=== PATIENT | female | born 1990 | race Caucasian/White ===

== ENCOUNTER 2022-09-02 14:20 | Inpatient (IN) | payer OTHER ==
--- OUTSIDE RECORDS SUMMARY | 2022-09-02 14:24 | XMS REPORT | Continuity of Care Document ---
:1990 Author Organization [facility] t Address [address]. [place]. [address] [place] [address] Care Team Providers Name Role Phone Manjit CASTILLO, Jonny Zamarripa Primary Care Physician [phone] GUZMAN POLK Attending Clinician Unavailable LAB90 Attending Clinician Unavailable CONSUELO WONG Attending Clinician Unavailable Tasha James Attending Clinician Unavailable Ekwo Attending Clinician Unavailable Ekwo Admitting Clinician Unavailable Payers Payer Name Policy Type Policy Number Effective Date Expiration Date Brad [facility] [id number] 2022 DEGREE BENEFIT 00:00:00 [facility] [id number] (O) Problems Condition Condition Condition Status Onset Resolution Last Treating Co mments Source Name Details Category Date Date Treatment Clinician Date Elevated Elevated Disease Active Kelse y liver liver 4-28 Seybold function function 00:00: - tests tests 00 Externa l Diagnosis Active 2017-052018-02-16 Memoria 8 8 0-12 15:29:00 l WEEKS/VOMI WEEKS/VOMI 00:00: He rmann TTING TTING 00 Active 02/16/2018 [facility] Hai Simple Simple Problem Active 2019-06-16 Mem oria obesity obesity 00:45:28 l (disorder) (disorder) He rmann Active Problem 06/16/2019 [facility] 8 weeks 8 weeks Problem 2018-09-05 Me moria gestation gestation 14:32:58 l of of Crum 09/05/2018 [facility] History of Past Illness Condition Condition Condition Status Onset Resolution Last Treating Co mments Source Name Details Category Date Date Treatment Clinician Date Vomiting Vomiting Problem 2017-052018-09-05 2018-09-05 Memoria of of 0-18 14:32:58 14:32:58 l , , 04:24: Jair dar unspecifie unspecifie 05 d d 02/22/2018 09/05/2018 [facility] Nausea Nausea Problem 2017-052018-09-05 2018-09-05 Memoria with with 0-12 14:32:58 14:32:58 l vomiting, vomiting, 05:00: Herm shannen unspecifie unspecifie 00 d d 02/16/2018 09/05/2018 [facility] Encounter Encounter Problem 2017-052018-09-05 2018-09-05 Memoria for for 0-12 14:32:58 14:32:58 l supervisio supervisio 05:00: He dar n of n of 00 normal normal , , unspecifie unspecifie d, d, unspecifie unspecifie d d trimester trimester 02/16/2018 9 [facility] Allergies, Adverse Reactions, Alerts This patient has no known allergies or adverse reactions. Social History Social Habit Start Date Stop Date Quantity Comments Source Gender identity Fior lindo - External Sexual orientation Fior Schmitt - External ASSERTION [facility] Sex Assigned At [birth year] Jose Armando Schmitt - 00:00:00 00:00:00 External Smoking Status Start Date Stop Date Source Tobacco smoking consumption unknown Fior Schmitt - External Social History [facility] Medications Ordered Filled Start Stop Current Ordering Indication Dosage Frequency Signature Comments Components Source Medication Medication Date Date Medication? Clinician (SIG) Name Name Metoclopram 2017-05 No 10 mg = 1 M emoria sameera 10 MG 0-13 tab, PO, l Oral Tablet 01:47: QID, X 7 He rmann [Reglan] 00 day, # 28 tab, 0 Refill(s) Sodium 2017-05 No 1,000 mL, Memori a Chloride 0-12 Infuse l 0.9% 22:19: Over: 1 Hai (Bolus) IV 00 hr, Route: IV, ONCE, Priority: STAT, Dosing Weight 72.727 kg, Start date: 02/16/18 17:19:00 CDT, Stop date: 02/16/18 17:19:00 CDT Reglan 2017-05 No Notes: Memoria 0-12 (Same as: l 19:18: Reglan) Crum 00 Sodium 2017-05 No 1,000 mL, Memori a Chloride 0-12 1,000 l 0.9% 19:18: ml/hr, Hai (Bolus) IV 00 Infuse Over: 1 hr, Route: IV, 1,000, Drug form: INJ, ONCE, Priority: STAT, kg, Start date: 02/16/18 14:18:00 CDT, Stop date: 02/16/18 14:18:00 CDT Immunizations Ordered Immunization Filled Immunization Date Status Commen ts Source Name Name Tdap- (Boostrix, 2018-07-06 Completed Fior brizuela Adacel) 00:00:00 - External Vital Signs Vital Name Observation Time Observation Value Comments Source Systolic blood 2022-09-02 18:03:00 105 mm[Hg] Fior Schmitt - pressure External Diastolic blood 2022-09-02 18:03:00 83 mm[Hg] Parviz Schmitt - pressure External Heart rate 2022-09-02 18:03:00 106 /min Fior brizuela - External Body temperature 2022-09-02 18:03:00 37.28 Helen Billie domínguez Seybwisam - External Respiratory rate 2022-09-02 18:03:00 14 /min Billie Schmitt - External Body height 2022-09-02 18:03:00 165.1 cm Fior brizuela - External Body weight 2022-09-02 18:03:00 77.111 kg Fior brizuela - External BMI 2022-09-02 18:03:00 28.29 kg/m2 Fior brizuela - External Oxygen saturation in 2022-09-02 18:03:00 96 /min Fior Schmitt - Arterial blood by External Pulse oximetry Systolic (mm Hg) 2019-06-13 15:50:00 Tomás rial Hai Diastolic (mm Hg) 2019-06-13 15:50:00 Mem orial Hai Heart Rate 2019-06-13 15:50:00 Memorial Hai Respitory Rate 2019-06-13 15:50:00 Memori al Hai Temperature Oral (F) 2019-06-13 15:50:00 97.8 F [facility] Height 2019-06-13 15:50:00 167.64 cm [facility] Hai Weight 2019-06-13 15:50:00 [facility] BMI Calculated 2019-06-13 15:50:00 Memori al Hai Systolic (mm Hg) 2018-02-17 01:59:00 Tomás rial Crum Diastolic (mm Hg) 2018-02-17 01:59:00 Mem orial Hai Respitory Rate 2018-02-17 01:59:00 Memori al Crum Heart Rate 2018-02-17 01:59:00 [facility] Hai Temperature Oral (F) 2018-02-17 01:59:00 98.5 F [facility]ai Heart Rate 2018-02-16 23:47:00 [facility] Hai Respitory Rate 2018-02-16 23:47:00 Memori al Hai Systolic (mm Hg) 2018-02-16 23:47:00 Tomás rial Crum Diastolic (mm Hg) 2018-02-16 23:47:00 Mem orial Hai Temperature Oral (F) 2018-02-16 23:47:00 98.7 F [facility] Hai Systolic (mm Hg) 2018-02-16 22:09:00 Tomás rial Hai Diastolic (mm Hg) 2018-02-16 22:09:00 Mem orial Hai Respitory Rate 2018-02-16 22:09:00 Memori al Crum Heart Rate 2018-02-16 22:09:00 [facility] Hai Temperature Oral (F) 2018-02-16 22:09:00 98.7 F [facility] BMI Calculated 2018-02-16 19:17:00 Memori al Hai Height 2018-02-16 19:17:00 165.1 cm [facility] Weight 2018-02-16 19:17:00 [facility] Procedures Procedure Date / Time Performing Clinician Source Performed Influenza Types A,B 2022-01-09 00:00:00 Malika . Direct EIA [facility] A Streptococcus 2022-01-09 00:00:[address] Screen (CHETAN) [facility] 2018-05-08 [facility] 2008-05-08 00:00:00 [facility] Plan of Care Planned Activity Planned Date Details Comments Source Future Scheduled 2022-01-07 HEPATITIS B [facility] 02:16:14 VACCINES (1 of 3 - 3-dose series) [code = HEPATITIS B VACCINES (1 of 3 - 3-dose series)] Future Scheduled 2022-01-07 COVID-19 VACCINE [facility] 02:16:14 (#1) [code = COVID-19 VACCINE (#1)] Future Scheduled 2022-01-07 Screening for [facility] Test 02:16:14 malignant neoplasm of cervix (procedure) [code = 527885783] Future Scheduled 2022-01-07 INFLUENZA VACCINE [facility] 02:16:14 [code = INFLUENZA VACCINE] Encounters Start End Encounter Admission Attending Care Care Encounter Source Date/Time Date/Time Type Type Clinicians Facility Department ID 2022-09-02 2022-09-02 Outpatient FIOR POLK [id number] Fior 16:45:00 16:45:00 GUZMAN cano 2022-09-02 2022-09-02 Outpatient LAB90 FIOR JOHNSON [id number] Fior 13:45:00 13:45:00 Mike cano 2022-08-30 2022-08-30 Emergency E JUDITH, MHBL MHBL [id number] MHBL 11:24:00 14:59:00 SARATHI 2022-01-09 2022-01-09 Departed [id number] [facility] [place] fb [id number] [place] 18:05:00 19:46:00 Emergency [id number] Tenzin [id number] . -[id number] Health [id number] Joaquin eph' [id number] Ctr-EMERGEN [id number] s [facility]/MS Care [facility] 2022-01-09 2022-01-09 Emergency ER James, STNINOSKAJQue STNINOSKAJQue [id number] 18:05:00 19:46:00 Tasha -[id number] Eligio Jauregui 2020-03-26 2020-03-26 Outpatient Ekwo [facility] [id number] [place] 04:35:00 04:35:00 1119 lle [facility] 2019-06-13 2019-06-14 Outpatient nullFlavo [facility] [id number] Memoria 15:45:00 05:59:59 r Primary 01 l [facility] 2018-02-16 2018-02-17 Emergency nullFlavo [facility] [id number] Memoria 19:05:00 02:03:00 r Crum 00 l [facility] 2017-06-27 2017-06-27 Ambulatory nullFlavo [facility] [id number] Memoria 21:30:00 21:30:00 Pre-Reg r Neurology 00 l of [facility] Results Test Description Test Time Test Comments Results Result Comments Source Culture, Strep Group A Rflx 2022-01-11 14:47:00 Test Item Value Reference Range Interpretation Comme nts Culture, Strep Group A Rflx (test STRPCULT A code = STRPACULT) Culture, Strep Group A Rflx (test P A No penicillin, cephalosporin, or code = STRPACULT1) vancomyci n resistance hasbeen detected in Beta-hemolyt ic strep groups A,B,C,F or G,so routine susceptibility testing for these organ isms is notnecessary. Influenza A+B Ag [id number] 19:17:00 Test Item Value Reference Range Interpretation Comments Influenza A+B Ag The rapid Flu A+B test Screen (test code = can distinguish between FLU) influenza A Influenza A+B Ag follow up confirmatory Screen (test code = testing is warranted. FLU1) Influenza A+B Ag FLUB Screen (test code = FLU1) Influenza A+B Ag N Screen (test code = FLU1) Strep Group A [id number] 19:02:00 Test Item Value Reference Range Interpretation Comments Strep Group A Screen (test code = STRPANEG1 STRP) Strep Group A Screen (test code = N STRP1) Strep Group A Screen (test code = STRPTH STRP1) [id number] 18:51:00 Test Item Value Reference Range Interpretation Comments Urinalysis (test code = UACLR) Yellow Yellow Urinalysis (test code = UACLY) Clear Clear Urinalysis (test code = SPGR) 1.034 1.002-1.036 N Urinalysis (test code = BRAULIO) 5.5 5.0-9.0 N Urinalysis (test code = UALEU) Negative Negative Urinalysis (test code = UANIT) Negative Negative Urinalysis (test code = Negative mg/dL Neg-Trace PROUADIP) Urinalysis (test code = GLUCU) Negative mg/dL Negative Urinalysis (test code = KETU) Negative mg/dL Negative Urinalysis (test code = 0.2 mg/dL Less than 2 UAUROB) Urinalysis (test code = UABIL) Negative Negative Urinalysis (test code = UABLD) Negative Negative Urine Source: Urine Clean [id number] 18:50:00 Test Item Value Reference Range Interpretation Comments Urinalysis (test Negative Negative Method of s ensitivity- code = BHCGUT) INDETERMINANT : results should be repea skip after 48-72 hrs POSIT RACHEL: results may be detected as early as 1 day after the first missed period A dilute urine specimen may no t contain representativel evels of hCG.If pregnanc y is still suspected, a fi rst morning urinespecimen O R a random blood specimen should be obtainedfrom e patient 48-72 hours lat er and re-tested. Urinalysis (test 1.034 1.002-1.036 N code = PREGUSG) HCG ur [id number] 18:39:00 Test Item Value Reference Range Interpretation Comments Urine Test (test code = Negative Negative 6-3) [facility]2022 18:39:00 Test Item Value Reference Range Interpretation Comments Urine Color (test code = 5778-6) Yellow Yellow [facility] [id number] 18:39:00 Test Item Value Reference Range Interpretation Comments Urine Clarity (test code = 19670-0) Clear Clear [facility] specific gravity measurement by [id number] 18:39:00 Test Item Value Reference Range Interpretation Comments Urine Specific Pray (test code = 1.034 1.002-1.036 5810-7) [facility] pH measurement by automated test strip 2022-01-09 18:39:00 Test Item Value Reference Range Interpretation Comments Urine pH (test code = 13047-2) 5.5 5.0-9.0 [facility] leukocyte esterase detection by automated test [id number] 18:39:00 Test Item Value Reference Range Interpretation Comments Urine Leukocyte Esterase (test code Negative Negative = 10241-2) [facility] Urine by Test strip 2022-01-09 18:39:00 Test Item Value Reference Range Interpretation Comments Urine Nitrite (test code = 5802-4) Negative Negative [facility] protein measurement by automated test strip (mass/volume)2022-01-09 18:39:00 Test Item Value Reference Range Interpretation Comments Urine Protein (test code = Negative mg/dL Neg-Trace 41087-3) [facility] glucose measurement by test strip (mass/volume)2022-01-09 18:39:00 Test Item Value Reference Range Interpretation Comments Urine Glucose (UA) (test code Negative mg/dL Negative = 5792-7) [facility] ketones measurement by automated test strip (mass/volume)2022-01-09 18:39:00 Test Item Value Reference Range Interpretation Comments Urine Ketones (test code = Negative mg/dL Negative 44582-5) [facility] urobilinogen measurement (units/volume) by test [id number] 18:39:00 Test Item Value Reference Range Interpretation Comments Urine Urobilinogen (test code = 0.2 mg/dL Less than 2 49445-3) [facility] total bilirubin detection by automated test [id number] 18:39:00 Test Item Value Reference Range Interpretation Comments Urine Bilirubin (test code = Negative Negative 63118-9) [facility] hemoglobin detection by automated test [id number] 18:39:00 Test Item Value Reference Range Interpretation Comments Urine Blood (test code = 41772-3) Negative Negative [facility] 20:31:00 Test Item Value Reference Range Interpretation Comments Hct (test code = Hct) 40.0 36.0-48.0 [facility]CzrffmpNKKEJLTLGT0555-60-78 20:31:00 Test Item Value Reference Range Interpretation Comments MCV (test code = MCV) 85.3 80.0-98.0 [facility]woodMuqsgzfHLWYUTUANO8981-46-40 20:31:00 Test Item Value Reference Range Interpretation Comments MCH (test code = MCH) 29.8 pg 27.0-31.0 [facility]woodWwwzcyvYSLAHXTWIW9090-29-11 20:31:00 Test Item Value Reference Range Interpretation Comments RBC (test code = RBC) 4.69 4.20-5.40 [facility] BrownwoodZdospatWOCMYUVCHQ1560-75-19 20:31:00 Test Item Value Reference Range Interpretation Comments Hgb (test code = Hgb) 14.0 12.0-16.0 [facility]woodCklvlpfHRQZEQVDCA8948-04-91 20:31:00 Test Item Value Reference Range Interpretation Comments WBC (test code = WBC) 11.9 3.7-10.4 [facility]woodEzzodbpYYFFRSVTCT5464-16-36 20:31:00 Test Item Value Reference Range Interpretation Comments Platelet (test code = Platelet) 259 133-450 [facility] BrownwoodCbbkiqiIIYBOLVDCO6637-97-34 20:31:00 Test Item Value Reference Range Interpretation Comments MPV (test code = MPV) 8.9 7.4-10.4 [facility] BrownwoodKgpxrblLYXLVILCBI0345-79-96 20:31:00 Test Item Value Reference Range Interpretation Comments Lymphocytes (test code = Lymphocytes) 24.3 20.0-40.0 [facility] BrownwoodJjxivoaZPYQZQAISW7440-15-28 20:31:00 Test Item Value Reference Range Interpretation Comments Basophils # (test code 0.1 See_Comment [Aut omated message] The = Basophils #) system which generated this result tra nsmitted reference range : <=0.2. The reference r omar was not used to int erpret this result as normal/abnormal . [facility] BrownwoodZxoteocPSFCAXEDBX7983-75-21 20:31:00 Test Item Value Reference Range Interpretation Comments Eosinophils # (test code 0.1 See_Comment [A utomated message] The = Eosinophils #) system [facility] h generated this result tra nsmitted reference range : <=0.5. The reference r omar was not used to int erpret this result as normal/abnormal . [facility] Br[id number] 20:31:00 Test Item Value Reference Range Interpretation Comments Monocytes # (test code 0.8 See_Comment [Aut omated message] The = Monocytes #) system which generated this result tra nsmitted reference range : <=0.8. The reference r omar was not used to int erpret this result as normal/abnormal . [facility] BrownwoodWocxichXQZERQMWJT8522-56-25 20:31:00 Test Item Value Reference Range Interpretation Comments Lymphocytes # (test code = Lymphocytes 2.9 1.0-5.5 #) [facility] BrownwoodFtvupqyFAJPIABYZU4720-70-08 20:31:00 Test Item Value Reference Range Interpretation Comments Neutrophils # (test code = Neutrophils 8.0 1.5-8.1 #) [facility] BrownwoodHawpulcCBXUBKKUMD7621-68-95 20:31:00 Test Item Value Reference Range Interpretation Comments Basophils (test code = 0.8 See_Comment [Aut omated message] The Basophils) system which ge nerated this result tra nsmitted reference range : <=1.0. The reference r omar was not used to int erpret this result as normal/abnormal . [facility] Brownwo[id number] 20:31:00 Test Item Value Reference Range Interpretation Comments Eosinophils (test code = 0.7 See_Comment [A utomated message] The Eosinophils) system which ge nerated this result tra nsmitted reference range : <=4.0. The reference r omar was not used to int erpret this result as normal/abnormal . [facility] BrownwoodHnitzaeXQRATMRQHM8851-14-19 20:31:00 Test Item Value Reference Range Interpretation Comments Monocytes (test code = Monocytes) 6.8 2.0-12.0 [facility]JswuytyZOPXVJTBFX4752-61-44 20:31:00 Test Item Value Reference Range Interpretation Comments Segs (test code = Segs) 67.4 45.0-75.0 [facility] [id number] 20:31:00 Test Item Value Reference Range Interpretation Comments UA Bacteria (test code = UA Occasional /HPF Bacteria) [facility] AND [id number] 20:31:00 Test Item Value Reference Range Interpretation Comments UA Nitrite (test code Negative (02/16/18 3:31 = UA Nitrite) PM) [facility] [id number] 20:31:00 Test Item Value Reference Range Interpretation Comments UA Urobilinogen (test code = UA <=1.0 mg/dL 0.1-1.0 Urobilinogen) [facility] [id number] 20:31:00 Test Item Value Reference Range Interpretation Comments UA RBC (test code = 3 See_Comment [Automa skip message] The UA RBC) system which ge nerated this result transmit skip reference range : <=2. The reference range was not used to interpr et this result as marina l/abnormal. [facility] [id number] 20:31:00 Test Item Value Reference Range Interpretation Comments UA Sq Epi (test code = UA Sq Epi) Few /LPF [facility] AND [id number] 20:31:00 Test Item Value Reference Range Interpretation Comments UA WBC (test code = 1 See_Comment [Automa skip message] The UA WBC) system which ge nerated this result transmit skip reference range : <=5. The reference range was not used to interpr et this result as marina l/abnormal. [facility] [id number] 20:31:00 Test Item Value Reference Range Interpretation Comments UA Mucus (test code = UA Mucus) Many /LPF [facility] [id number] 20:31:00 Test Item Value Reference Range Interpretation Comments UA Color (test code = Yellow *NA*(02/16/18 UA Color) 3:31 PM) [facility] [id number] 20:31:00 Test Item Value Reference Range Interpretation Comments UA pH (test code = UA pH) 5.0 1 5.0-8.0 [facility] AND [id number] 20:31:00 Test Item Value Reference Range Interpretation Comments UA Spec Grav (test code = UA Spec 1.028 1 Grav) [facility] AND [id number] 20:31:00 Test Item Value Reference Range Interpretation Comments UA Protein (test code = UA Protein) 30 mg/dL [facility] AND [id number] 20:31:00 Test Item Value Reference Range Interpretation Comments UA Glucose (test code = UA Negative mg/dL Glucose) [facility] AND [id number] 20:31:00 Test Item Value Reference Range Interpretation Comments UA Turbidity (test code Slight *ABN*(02/16/18 = UA Turbidity) 3:31 PM) [facility] AND [id number] 20:31:00 Test Item Value Reference Range Interpretation Comments UA Blood (test code = Negative (02/16/18 3:31 UA Blood) PM) [facility] AND [id number] 20:31:00 Test Item Value Reference Range Interpretation Comments UA Bili (test code = Negative *NA*(02/16/18 UA Bili) 3:31 PM) [facility] AND [id number] 20:31:00 Test Item Value Reference Range Interpretation Comments UA Leuk Est (test Negative (02/16/18 3:31 code = UA Leuk Est) PM) [facility] AND [id number] 20:31:00 Test Item Value Reference Range Interpretation Comments UA Ketones (test code = UA Ketones) 80 mg/dL [facility] [id number] 20:31:00 Test Item Value Reference Range Interpretation Comments Culture: Urine (test code = No Growth Culture: Urine) [facility] [id number] 20:31:00 Test Item Value Reference Range Interpretation Comments eGFR (test code = eGFR) 124 [facility] [id number] 20:31:00 Test Item Value Reference Range Interpretation Comments ALT (test code = ALT) 18 See_Comment [Auto mated message] The system which ge nerated this result transmit skip reference range : <=65. The reference range was not used to interpr et this result as marina l/abnormal. [facility]2018-10-12 20:31:00 Test Item Value Reference Range Interpretation Comments Glucose Lvl (test code = Glucose Lvl) 84 70-99 [facility]2018-10-12 20:31:00 Test Item Value Reference Range Interpretation Comments BUN (test code = BUN) 7 7-22 [facility]2018-10-12 20:31:00 Test Item Value Reference Range Interpretation Comments Creatinine Lvl (test code = Creatinine 0.64 0.50-1.40 Lvl) [facility]2018-10-12 20:31:00 Test Item Value Reference Range Interpretation Comments Sodium Lvl (test code = Sodium Lvl) 139 135-145 [facility]2018-10-12 20:31:00 Test Item Value Reference Range Interpretation Comments Chloride Lvl (test code = Chloride Lvl) 107 95-109 [facility]2018-10-12 20:31:00 Test Item Value Reference Range Interpretation Comments Potassium Lvl (test code = Potassium 4.2 3.5-5.1 Lvl) [facility]2018-10-12 20:31:00 Test Item Value Reference Range Interpretation Comments Bili Total (test code = Bili Total) 0.6 0.2-1.3 [facility]2018-10-12 20:31:00 Test Item Value Reference Range Interpretation Comments Alk Phos (test code = Alk Phos) 51 39-136 [facility]2018-10-12 20:31:00 Test Item Value Reference Range Interpretation Comments CO2 (test code = CO2) 21 24-32 [facility]2018-10-12 20:31:00 Test Item Value Reference Range Interpretation Comments Calcium Lvl (test code = Calcium Lvl) 9.2 8.5-10.5 [facility]2018-10-12 20:31:00 Test Item Value Reference Range Interpretation Comments Total Protein (test code = Total 8.0 6.4-8.4 Protein) [facility]2018-10-12 20:31:00 Test Item Value Reference Range Interpretation Comments Albumin Lvl (test code = Albumin Lvl) 4.4 3.5-5.0 [facility]2018-10-12 20:31:00 Test Item Value Reference Range Interpretation Comments AST (test code = AST) 17 See_Comment [Auto mated message] The system which ge nerated this result transmit skip reference range : <=37. The reference range was not used to interpr et this result as marina l/abnormal. [facility]2018-10-12 20:31:00 Test Item Value Reference Range Interpretation Comments B/C Ratio (test code = B/C Ratio) 11 1 6-25 [facility]2018-10-12 20:31:00 Test Item Value Reference Range Interpretation Comments Globulin (test code = Globulin) 3.6 2.7-4.2 [facility]2018-10-12 20:31:00 Test Item Value Reference Range Interpretation Comments A/G Ratio (test code = A/G Ratio) 1.2 1 0.7-1.6 [facility]2018-10-12 20:31:00 Test Item Value Reference Range Interpretation Comments AGAP (test code = AGAP) 15.2 10.0-20.0 [id number] 20:31:00 Test Item Value Reference Range Interpretation Comments hCG Tot (test code = hCG Tot) [id number] [id number] 20:31:00 Test Item Value Reference Range Interpretation Comments MCHC (test code = MCHC) 34.9 32.0-36.0 [id number] 20:31:00 Test Item Value Reference Range Interpretation Comments RDW (test code = RDW) 12.4 11.5-14.5 [facility]
[2022-09-02] MEDS ORDERED: NA CHLORIDE 0.9% 2,000 ML ONE (14:55)
[2022-09-02 15:13] LABS: Specific Gravity 1.019 (1.005-1.030); Urine Bacteria <20 /HPF (<20); Urine Bilirubin NEGATIVE (Negative); Urine Blood 1+ (Negative); Urine Clarity Turbid (Clear); Urine Color Yellow (Yellow); Urine Crystals Unidentified Few /HPF (None Seen); Urine Glucose NEGATIVE (Negative); Urine Mucus Slight /HPF (None Seen); Urine Protein 1+ (Negative); Urine RBC <5 /HPF (None Seen); Urine Urobilinogen 2+ (Normal); Urine pH 5.5 (5.0-7.0)
[2022-09-02 15:24] LABS: Absolute Lymphocytes (CBC) 3.2 K/uL (0.7-4.9); Hematocrit 33.7 % (36.0-45.0); Lymphocytes % 31.8 % (15.3-44.8); MCV 83.6 fL (80-100); MPV 9.4 fL (7.6-11.3); RBC Red Blood Cell Count 4.03 M/uL (3.86-4.86)
[2022-09-02 15:28] LABS: Protime INR 1.3
[2022-09-02 15:39] LABS: Albumin 3.2 g/dL (3.4-5.0); Bilirubin Total 1.1 mg/dL (0.2-1.0); Potassium 3.2 mEq/L (3.5-5.1); Protein, Total 7.3 g/dL (6.4-8.2)
[2022-09-02 17:32] LABS: Specific Gravity 1.019 (1.005-1.030)
--- NOTE | 2022-09-02 17:43 | RAD REPORT ---
EXAM DESCRIPTION: Jayne Single View09/02/2022 3:27 pm CLINICAL HISTORY: fever COMPARISON: none FINDINGS: The lungs appear clear of acute infiltrate. The heart is normal size IMPRESSION: No acute abnormalities displayed
[2022-09-02] MEDS ORDERED: ACETAMINOPHEN 500 MG TAB ONE ×2 (18:06→18:16)
--- NOTE | 2022-09-02 18:18 | RAD REPORT ---
EXAM DESCRIPTION: CT - Abdomen Pelvis Wo Contrast - 09/02/2022 5:51 pm CLINICAL HISTORY: Abdominal pain /bilateral flank pain COMPARISON: None TECHNIQUE: Computed axial tomography of the abdomen and pelvis was obtained. IV and oral contrast we re not requested. All CT scans are performed using dose optimization technique as appropriate and may include automated exposure control or mA/KV adjustment according to patient size. FINDINGS: The evaluation of solid organs, vessels and bowel is limited secondary to the lack of con trast administration. Spleen measures 14 centimeters. The liver, pancreas, adrenals and kidneys appear grossly normal. There is no evidence of diverticulitis. No adnexal mass IMPRESSION: Mild splenomegaly
--- NOTE | 2022-09-02 18:58 | EDPHYS ---
Physician Documentation [facility] Name: Kimberli Bautista Age: 31 yrs Sex: Female : 1990 Arrival Date: 09/02/2022 Time: 14:20 Bed 17 Private MD: Donavon Brooks ED Physician Jose Ramon Kenyon HPI: 09/02 15:31 This 31 yrs old Female presents to ER via Wheelchair with complaints of Urinary ms3 Problem, Fever, Back Pain. 15:31 31-year-old female with no past medical history presents from Dr. Mckeon office for ms3 fever, dysuria, urinary frequency, back pain that began on . Patient states he is having 10/10 body aches and back pain. Patient denies alleviating or inciting factors. Patient states she was seen at urgent care and referred to [facility]. Patient was then discharged from [facility] after IV fluids.. 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 - Social history:: Smoking status: Patient denies any tobacco usage or history of. Patient/guardian denies using alcohol. ROS: 15:31 Neck: Negative for injury, pain, and swelling, Cardiovascular: Negative for chest pain, ms3 and palpitations. Respiratory: Negative for shortness of breath, cough, wheezing, and pleuritic chest pain, Abdomen/GI: Negative for abdominal pain, nausea, vomiting, diarrhea, and constipation. 15:31 MS/Extremity: Negative for injury and deformity, Skin: Negative for injury, rash, and discoloration. 15:31 Constitutional: Positive for body aches, chills, fever. 15:31 Back: Positive for pain at rest. 15:31 : Positive for urinary symptoms, urinary frequency, burning with urination. 15:31 All other systems are negative. Exam: 15:31 Constitutional: This is a well developed, well nourished patient who is awake, alert, ms3 and in no acute distress. Head/Face: Normocephalic, atraumatic. Chest/axilla: Normal chest wall appearance and motion. Nontender with no deformity. Cardiovascular: Regular rate and rhythm with a normal S1 and S2. No gallops, murmurs, or rubs. Normal PMI, no JVD. No pulse deficits. Respiratory: Lungs have equal breath sounds bilaterally, clear to auscultation and percussion. No rales, rhonchi or wheezes noted. No increased work of breathing, no retractions or nasal flaring. Abdomen/GI: Soft, non-tender, with normal bowel sounds. No distension or tympany. No guarding or rebound. No evidence of tenderness throughout. 15:31 Skin: Warm, dry with normal turgor. Normal color with no rashes, no lesions, and no evidence of cellulitis. MS/ Extremity: Pulses equal, no cyanosis. Neurovascular intact. Full, normal range of motion. 15:31 Back: pain, that is moderate, CVA tenderness, that is moderate, is noted bilaterally. 18:52 ECG was reviewed by the Attending Physician. ms3 Vital Signs: 14:33 BP 121 / 65; Pulse 117; Resp 18; Temp 99.3(TE); Pulse Ox 99% on R/A; Weight 77.11 kg; ld1 Height 5 ft. 4 in. ; Pain 6/10; 15:06 BP 120 / 76; Pulse 106; Resp 20; Temp 103.1(O); Pulse Ox 98% ; mm9 15:42 BP 125 / 73; Pulse 101; Resp 18; Pulse Ox 100% on R/A; hb 16:30 BP 120 / 77; Pulse 102; Resp 18; Pulse Ox 100% on R/A; eh3 17:30 BP 108 / 70; Pulse 105; Resp 19; Pulse Ox 97% on R/A; eh3 17:59 Temp 102.5(O); mm9 19:14 Temp 101.9(O); mm9 20:00 BP 117 / 55; Pulse 89; Resp 17 S; Pulse Ox 97% on R/A; ha1 21:45 Temp 98.4; ha1 14:33 Body Mass Index 29.18 (77.11 kg, 162.56 cm) ld1 14:33 Pain Scale: Adult ld1 MDM: 14:39 Patient medically screened. ms3 15:31 Differential diagnosis: viral Infection, bacterial infection, URI, pneumonia UTI. ms3 19:23 Transition of care: After a detail discussion of the patient's case, care is ms3 transferred to Jose Ramon Kenyon MD. 21:24 Data reviewed: vital signs, nurses notes, lab test result(s), amylase and lipase, Beta sp4 HCG: CBC, electrolytes, Flu: hepatic panel, urinalysis, urine drug screen, radiologic studies, CT scan, plain films, ultrasound. ED course: Patient presents with 2 weeks of fever and feeling unwell. Labs reveal signs of acute hepatitis with significant elevation of AST, ALT, alkaline phosphatase. CT and ultrasound of right upper quadrant are unremarkable. No sign of acute surgical problem such as impacted gallstone or choledocholithiasis. Patient warrants admission for investigation for acute hepatitis including hepatitis panel, HIV, possible mononucleosis test and additional tests as indicated also gastroenterology consultation. At this time transfer seemed unnecessary but we will defer this to the admitting hospitalist. . ED course: Patient admitted in stable condition with diagnosis of acute hepatitis associated with 2 weeks of fever. 09/03 05:15 Consideration of Admission/Observation Patient was admitted/placed on observation. sp4 Escalation of care including admission/observation considered. Management of patient was discussed with the following: Hospitalist: Discussed with admitting hospitalist. ED course: Patient tested positive for mononucleosis which would explain protracted fever and elevated liver enzyme.. 09/02 14:45 Order name: Blood Culture Adult (2) ms3 09/02 14:45 Order name: CBC with Diff; Complete Time: 16:22 ms3 09/02 14:45 Order name: CMP; Complete Time: 16:22 ms3 09/02 14:45 Order name: Lactate w/ 2H reflex if indic.; Complete Time: 16:22 ms3 09/02 14:45 Order name: Protime (+inr); Complete Time: 15: ms3 09/02 14:45 Order name: Ptt, Activated; Complete Time: 15: ms3 09/02 14:45 Order name: Urinalysis w/ reflexes; Complete Time: 15: ms3 09/02 15:23 Order name: Glucose, Ancillary Testing; Complete Time: 15: EDMS 09/02 15:30 Order name: Flu; Complete Time: 17:21 ms3 09/02 15:30 Order name: COVID-19 SARS RT PCR; Complete Time: 17:21 ms3 09/02 16:13 Order name: PREGU; Complete Time: 17:51 eb 09/02 21:20 Order name: [place] Screen Profile; Complete Time: 00:26 la1 09/02 21:43 Order name: Hepatitis Panel; Complete Time: 00:26 la1 09/03 03:14 Order name: CBC with Automated Diff; Complete Time: 05:14 EDMS 09/03 03:17 Order name: Comprehensive Metabolic Panel; Complete Time: 05:14 EDMS 09/03 03:17 Order name: Lipid Profile; Complete Time: 05:14 EDMS 09/03 03:17 Order name: T4 Free; Complete Time: 05:14 EDMS 09/03 03:17 Order name: Thyroid Stimulating Hormone; Complete Time: 05:14 EDMS 09/03 08:41 Order name: Potassium EDMS 09/02 14:45 Order name: Chest Single View XRAY; Complete Time: 17:51 ms3 09/02 15:30 Order name: CT Abd/Pelvis - Without Contrast; Complete Time: 18:49 ms3 09/02 19:49 Order name: US Abdomen Limited; Complete Time: 21:13 sp4 09/02 14:45 Order name: EKG; Complete Time: 14:46 ms3 09/02 14:45 Order name: Accucheck; Complete Time: 15:15 ms3 09/02 14:45 Order name: Cardiac monitoring; Complete Time: 15:04 ms3 09/02 14:45 Order name: EKG - Nurse/Tech; Complete Time: 15:04 ms3 09/02 14:45 Order name: IV Saline Lock - Large Bore; Complete Time: 15:06 ms3 09/02 14:45 Order name: Labs collected and sent; Complete Time: 15:15 ms3 09/02 14:45 Order name: O2 Per Protocol; Complete Time: 15:04 ms3 09/02 14:45 Order name: O2 Sat Monitoring; Complete Time: 15:04 ms3 09/02 14:45 Order name: Vital Signs; Complete Time: 15:06 ms3 EC/28 18:52 Rate is 104 beats/min. Rhythm is regular. QRS [place] is Normal. TN interval is normal. ms3 QRS interval is normal. Clinical impression: Sinus tachycardia. Interpreted by me. Reviewed by me. Administered Medications: 15:00 Drug: NS 0.9% IV (30 ml/kg) 30 ml/kg Route: IV; Rate: bolus; Site: right antecubital; 3 18:10 Drug: Acetaminophen PO 1000 mg Route: PO; 3 09/03 00:30 Drug: NS 0.9% IV 1000 ml Route: IV; Rate: 100 ml/hr; Site: right antecubital; [facility] Disposition Summary: 09/02/22 21:30 Hospitalization Ordered Hospitalization Status: Inpatient Admission sp4 Provider: Nelson Woodward sp4 Condition: Stable(09/02/22 21:30) sp4 Problem: new(09/02/22 21:30) sp4 Symptoms: have improved(09/02/22 21:30) sp4 Bed/Room Type: Standard sp4 Location: Telemetry/MedSurg (Inpatient)(09/03/22 17:31) eb Room Assignment: 407(09/03/22 17:31) eb Diagnosis - Acute viral hepatitis, unspecified(09/02/22 21:30) sp4 - Acute hepatitis, intractable fever, fatigue, sp4 Forms: - Medication Reconciliation Form sp4 - SBAR form sp4 Signatures: Dispatcher [employer] EDMS Jackson Pugh PA PA jmm Attema, Lee, DOBBY LOOMS PEGGER-C DOBBY LOOMS PEGGER-Cla1 Yessica Anderson, RN RN Jana Esparza eb Kurt Stanley DO DO ms3 Diana Stanley RN RN 1 Angela Coon RN RN 3 Risa Jacobs RN RN 1 Jose Ramon Kenyon MD MD sp4 Corrections: (The following items were deleted from the chart) 09/02 21:29 18:58 ms3 sp4 21:29 18:58 [facility] ms3 sp4 21:29 18:58 Higher level of care ms3 sp4 21:29 18:58 Stable ms3 sp4 21:29 18:58 new ms3 sp4 21:29 18:58 are unchanged ms3 sp4 21:29 18:58 Acute viral hepatitis, unspecified ms3 sp4 21:29 18:58 Fever, unspecified ms3 sp4 23:15 21:30 Telemetry/MedSurg (Inpatient) sp4 cg 23: 21:30 sp4 cg 09/03 13:51 09/02 23:15 [facility] ER HOLD cg eb 09/03 13:51 09/02 23:15 ERHOLD- cg eb 09/03 13:53 13:51 Telemetry/MedSurg (Inpatient) eb eb 13:53 13:51 409 eb eb 17:31 13:53 [facility] ER HOLD eb eb 17:31 13:53 ERHOLD- eb eb
--- NOTE | 2022-09-02 18:58 | ER ---
Nurse's Notes [facility] Name: Kimberli Bautista Age: 31 yrs Sex: Female : 1990 Arrival Date: 09/02/2022 Time: 14:20 Bed 17 Private MD: Donavon Brooks Diagnosis: Acute viral hepatitis, unspecified;Acute hepatitis, intractable fever, fatigue, Presentation: 09/02 14:33 Chief complaint: Patient states: Cough, CAITLIN flank pain, fever, chills, X 1 week. ld1 Coronavirus screen: Client presents with at least one sign or symptom that may indicate coronavirus-19. Ebola Screen: No symptoms or risks identified at this time. Initial Sepsis Screen: Does the patient meet any 2 criteria? No. Patient's initial sepsis screen is negative. Does the patient have a suspected source of infection? Yes: Dysuria/Frequency/Urgency/UTI. Initial Sepsis Screen: Does the patient meet any 2 criteria? Temp <36.0*C (96.8*F)) or > 38.3*C (100.9*F). HR > 90 bpm. Yes. Risk Assessment: Do you want to hurt yourself or someone else? Patient reports no desire to harm self or others. 14:33 Method Of Arrival: Wheelchair ld1 14:33 Acuity: MAGY 3 ld1 Triage Assessment: 14:36 General: Appears in no apparent distress. comfortable, Behavior is calm, cooperative, ld1 appropriate for age. Pain: Complains of pain in low back area Pain does not radiate. Pain currently is 6 out of 10 on a pain scale. Quality of pain is described as throbbing. EENT: No signs and/or symptoms were reported regarding the EENT system. Neuro: Level of Consciousness is awake, alert, obeys commands, Oriented to person, place, time, situation. Cardiovascular: Capillary refill < 3 seconds Patient's skin is warm and dry. Rhythm is sinus tachycardia. Respiratory: Airway is patent Respiratory effort is even, unlabored. GI: Abdomen is non-distended. : No signs and/or symptoms were reported regarding the genitourinary system. Derm: No signs and/or symptoms reported regarding the dermatologic system. Musculoskeletal: No signs and/or symptoms reported regarding the musculoskeletal system. 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 - Social history:: Smoking status: Patient denies any tobacco usage or history of. Patient/guardian denies using alcohol. Screenin:00 [facility] Fall Risk Assessment (Adult) Score/Fall Risk Level 0 - 2 = Low Risk. Abuse eh3 screen: Denies threats or abuse. Denies injuries from another. Nutritional screening: No deficits noted. Tuberculosis screening: No symptoms or risk factors identified. Assessment: 14:38 Reassessment: Code sepsis called at 1436. ld1 15:00 General: Appears distressed, ill, Behavior is cooperative, anxious. Pain: Complains of eh3 pain in low back area. Neuro: Level of Consciousness is awake, alert, obeys commands, Oriented to person, place, time, situation. Cardiovascular: Capillary refill < 3 seconds Patient's skin is warm and dry. Respiratory: Airway is patent Respiratory effort is even, unlabored, Respiratory pattern is regular, symmetrical. GI: Abdomen is round non-distended. : No signs and/or symptoms were reported regarding the genitourinary system. EENT: No signs and/or symptoms were reported regarding the EENT system. Derm: Skin is healthy with good turgor, Skin is pink, warm \T\ dry. Musculoskeletal: Circulation, motion, and sensation intact. 15:42 Reassessment: Patient appears in no apparent distress at this time. Patient and/or hb family updated on plan of care and expected duration. Pain level reassessed. Patient is alert, oriented x 3, equal unlabored respirations, skin warm/dry/pink. 16:30 Reassessment: Patient appears in no apparent distress at this time. Patient and/or eh3 family updated on plan of care and expected duration. Pain level reassessed. Patient is alert, oriented x 3, equal unlabored respirations, skin warm/dry/pink. 17:30 Reassessment: Patient appears in no apparent distress at this time. Patient and/or eh3 family updated on plan of care and expected duration. Pain level reassessed. Patient is alert, oriented x 3, equal unlabored respirations, skin warm/dry/pink. 20:00 Reassessment: Patient and/or family updated on plan of care and expected duration. Pain ha1 level reassessed. Patient is alert, oriented x 3, equal unlabored respirations, skin warm/dry/pink. 21:00 Reassessment: Patient and/or family updated on plan of care and expected duration. Pain ha1 level reassessed. Patient is alert, oriented x 3, equal unlabored respirations, skin warm/dry/pink. Vital Signs: 14:33 BP 121 / 65; Pulse 117; Resp 18; Temp 99.3(TE); Pulse Ox 99% on R/A; Weight 77.11 kg; ld1 Height 5 ft. 4 in. ; Pain 6/10; 15:06 BP 120 / 76; Pulse 106; Resp 20; Temp 103.1(O); Pulse Ox 98% ; mm9 15:42 BP 125 / 73; Pulse 101; Resp 18; Pulse Ox 100% on R/A; hb 16:30 BP 120 / 77; Pulse 102; Resp 18; Pulse Ox 100% on R/A; eh3 17:30 BP 108 / 70; Pulse 105; Resp 19; Pulse Ox 97% on R/A; eh3 17:59 Temp 102.5(O); mm9 19:14 Temp 101.9(O); mm9 20:00 BP 117 / 55; Pulse 89; Resp 17 S; Pulse Ox 97% on R/A; ha1 21:45 Temp 98.4; ha1 14:33 Body Mass Index 29.18 (77.11 kg, 162.56 cm) ld1 14:33 Pain Scale: Adult ld1 ED Course: 14:23 Patient arrived in ED. mr 14:24 Donavon Brooks DO is Private Physician. mr 14:26 Kurt Stanley DO is Attending Physician. ms3 14:36 Triage completed. ld1 14:36 Arm band placed on right wrist. ld1 14:46 Angela Coon, RN is Primary Nurse. eh3 15:04 Urinalysis w/ reflexes Sent. mm9 15:05 Patient has correct armband on for positive identification. Placed in gown. Bed in low mm9 position. Call light in reach. Side rails up X 1. Adult w/ patient. Warm blanket given. Client placed on continuous cardiac and pulse oximetry monitoring. NIBP monitoring applied. lunchroom monitor on. Pulse ox on. NIBP on. 15:05 Initial lab(s) drawn, by ED staff, EKG done, by ED staff, reviewed by Kurt Stanley DO. mm9 Urine collected: clean catch specimen, tea colored. Inserted saline lock: 20 gauge in right antecubital area, using aseptic technique. Blood collected. 15:10 First set of blood cultures drawn by me. eh3 15:25 Second set of blood cultures drawn by me. eh3 15:28 Chest Single View XRAY In Process Unspecified. EDMS 15:34 Radiology exam delayed due to test not completed at this time. jg10 16:05 COVID-19 SARS RT PCR Sent. mm9 16:05 Flu Sent. mm9 17:06 PREGU Sent. mm9 17:53 CT Abd/Pelvis - Without Contrast In Process Unspecified. EDMS 19:24 Attending Physician role handed off by Kurt Stanley DO ms3 19:24 Jose Ramon Kenyon MD is Attending Physician. ms3 20:21 US Abdomen Limited In Process Unspecified. EDMS 21:29 Nelson Woodward MD is Hospitalizing Provider. sp4 22:47 Hepatitis Panel Sent. ha1 22:47 [place] Screen Profile Sent. ha1 09/03 17:41 No provider procedures requiring assistance completed. Patient admitted, IV remains in kc6 place. Administered Medications: 09/02 15:00 Drug: NS 0.9% IV (30 ml/kg) 30 ml/kg Route: IV; Rate: bolus; Site: right antecubital; eh3 18:10 Drug: Acetaminophen PO 1000 mg Route: PO; eh3 09/03 00:30 Drug: NS 0.9% IV 1000 ml Route: IV; Rate: 100 ml/hr; Site: right antecubital; ha1 Medication: 17:41 VIS not applicable for this client. kc6 Outcome: 09/02 18:58 ER care complete, transfer ordered by . ms3 21:30 Decision to Hospitalize by Provider. sp4 09/03 17:41 Admitted to Med/surg accompanied by tech, via wheelchair, room 407, with chart, Report kc6 called to ANAHI Shah Condition: stable Instructed on the need for admit. 17:56 Patient left the ED. kc6 Signatures: Dispatcher [employer] Valerie GodfreyEsther, RN RN Kurt Watters, DO ms3 Diana Stanley RN RN ld1 Angela Coon RN RN eh3 Risa Jacobs RN RN ha1 Campbell, Kaitlyn, RN RN kc6 [facility] Jose Ramon Kenyon MD MD sp4 Corrections: (The following items were deleted from the chart) 09/02 16:58 16:00 Reassessment: Patient appears in no apparent distress at this time. Patient eh3 and/or family updated on plan of care and expected duration. Pain level reassessed. Patient is alert, oriented x 3, equal unlabored respirations, skin warm/dry/pink. eh3
--- NOTE | 2022-09-02 20:34 | RAD REPORT ---
EXAM DESCRIPTION: US - Abdomen Exam Limited - 09/02/2022 8:20 pm CLINICAL HISTORY: Abdominal pain. COMPARISON: None. FINDINGS: The gallbladder wall is not thickened. A gallstone is not seen. The biliary tree is normal caliber. IMPRESSION: Unremarkable gallbladder ultrasound.
--- NOTE | 2022-09-02 23:24 | P.HP ---
Certification for Inpatient Patient admitted to: Inpatient With expected LOS: >2 Midnights Patient will require the following post-hospital care: None Practitioner: I am a practitioner with admitting privileges, knowledge of patient current condition, hospital course, and medical plan of care. Services: Services provided to patient in accordance with Admission requirements found in Title 42 Section 412.3 of the Code of Federal Regulations Patient History Date of Service: 09/02/22 Reason for admission: Elevated LFTs, fever History of Present Illness: 31-year-old otherwise healthy female presents to the emergency department with chief complaint of fevers, muscle aches, dark urine. She reports that she began running fevers on the of this month as well as having generalized muscle aches she recently noticed her urine was becoming dark. She is evaluated here in the emergency department her labs were significant for elevated LFTs T. bili 1.1 AST 158 ALT 170 alk phos 320 urine urobilinogen 2+ her CBC was unremarkable CT of the abdomen pelvis showed splenomegaly abdominal ultrasound showed normal gallbladder/biliary tree chest x-ray was unremarkable. Unclear etiology of elevated LFTs, I have added Monospot as well as acute hepatitis panel currently. Patient denies any sore throat, cough she does have a mild macular rash that is blanchable primarily to her left lower extremity. We will need to admit for further evaluation and management of elevated LFTs, fever. - Past Medical/Surgical History -: None -: -: D&C -: Tonsillectomy Psychosocial/ Personal History: Patient is employed at the school, lives at home with her - Family History Family History: Reviewed- Non-Contributory - Social History Smoking Status: Never smoker Alcohol use: No CD- Drugs: No Caffeine use: Yes Place of Residence: Home Review of Systems 10-point ROS is otherwise unremarkable General: Fever, Chills, Weakness, Other (Myalgias) Physical Examination - Physical Exam General: Alert, In no apparent distress, Oriented x3, Obese HEENT: Atraumatic, PERRLA, Mucous membr. moist/pink, EOMI, Sclerae nonicteric Neck: Supple, 2+ carotid pulse no bruit, No LAD, Without JVD or thyroid abnormality Respiratory: Clear to auscultation bilaterally, Normal air movement Cardiovascular: Regular rate/rhythm, Normal S1 S2 Capillary refill: <2 Seconds Gastrointestinal: Normal bowel sounds, No tenderness Musculoskeletal: No tenderness Integumentary: No rashes Neurological: Normal gait, Normal speech, Normal strength at 5/5 x4 extr, Normal tone, Normal affect Lymphatics: No axilla or inguinal lymphadenopathy - Studies Laboratory Data (last 24 hrs) 09/02/22 15:10: PT 14.3 H, INR 1.30, APTT 32.6 09/02/22 15:10: Sodium 135 L, Potassium 3.2 L, BUN 12, Creatinine 0.85, Glucose 102, Total Bilirubin 1.1 H, AST 158 H, ALT 170 H, Alkaline Phosphatase 320 H 09/02/22 15:10: WBC 9.90, Hgb 11.6 L, Hct 33.7 L, Plt Count 205 Microbiology Data (last 24 hrs): 09/02/22 15:58 Nasopharnyx Influenza Type A Antigen Screen - Final 09/02/22 15:58 Nasopharnyx Influenza Type B Antigen Screen - Final Assessment and Plan - Plan Assessment: Elevated aminotransferase levels, fever Plan: Elevated aminotransferase levels, fever Unclear etiology, at this time primary considerations are mononucleosis, acute viral hepatitis. Additional diagnostics ordered, GI consult in place. CT and ultrasound nondiagnostic, no abnormal gallbladder/biliary tree findings. Mild splenomegaly present on CT scan. Additional work-up ordered. DVT PPX: Lovenox Code status: Full Discharge Plan: Home Plan to discharge in: 48 Hours - Advance Directives Does patient have a Living Will: No Does patient have a Durable POA for Healthcare: No - Code Status/Comfort Care Code Status Assessed: Yes (Full code) Critical Care: No Time Spent Managing Pts Care (In Minutes): 70
[2022-09-03 00:17] LABS: Hepatitis B Core IgM Nonreactive (Nonreactive); Hepatitis B surface AG Interp. Nonreactive (Nonreactive); Hepatitis C Virus Ab Nonreactive (Nonreactive)
[2022-09-03] MEDS ORDERED: NA CHLORIDE 0.9% 1,000 ML ONE ×2 (00:34→09:51)
[2022-09-03] MEDS: NA CHLORIDE 0.9% 1,000 ML IV SCH ×3 (01:58→18:13)
[2022-09-03] MEDS ORDERED: ONDANSETRON 4 MG/2 ML VIAL IV PRN (01:58)
[2022-09-03 02:58] LABS: Absolute Lymphocytes (CBC) 2.7 K/uL (0.7-4.9); Hematocrit 28.8 % (36.0-45.0); Lymphocytes % 34.9 % (15.3-44.8); MPV 9.5 fL (7.6-11.3); RBC Red Blood Cell Count 3.42 M/uL (3.86-4.86)
[2022-09-03 03:16] LABS: Albumin 2.4 g/dL (3.4-5.0); Bilirubin Total 0.6 mg/dL (0.2-1.0); Potassium 3.2 mEq/L (3.5-5.1); Protein, Total 5.8 g/dL (6.4-8.2); Thyroid Stimulating Hormone 2.3 uIU/mL (0.358-3.740)
[2022-09-03] MEDS ORDERED: IBUPROFEN 200 MG TAB PO ONE ×2 (05:56→05:57)
[2022-09-03] MEDS ORDERED: IBUPROFEN 400 MG TAB ONE (05:57)
[2022-09-03] MEDS ORDERED: POTASSIUM CL SA 10 MEQ TAB PO ONE ×2 (07:24→07:42)
[2022-09-03] MEDS ORDERED: ENOXAPARIN 40 MG/0.4 ML SQ ONE (07:42)
[2022-09-03] MEDS ORDERED: ACETAMINOPHEN 500 MG TAB ONE (07:42)
[2022-09-03] MEDS: ENOXAPARIN 40 MG/0.4 ML SQ SCH (08:11)
--- NOTE | 2022-09-03 15:20 | EKG ---
Test Date: 2022-09-02 Test Time: 15:21:11 Qual Field Manager: JAMES MEASUREMENT RESULTS: Intervals: Rate: 104 CO: 154 QRSD: 90 QT: 342 QTc: 449 [place]: P: 40 CO: 154 QRS: -7 T: 44 INTERPRETIVE STATEMENTS: Sinus tachycardia Otherwise normal ECG No previous ECG available for comparison Electronically Signed On 09-03-22 15:19:27 CDT by Andrés Hernandez
--- NOTE | 2022-09-03 15:47 | P.PN ---
Subjective Date of Service: 09/03/22 Chief Complaint: Elevated LFTs, fever No acute events since admission. She reports being hospitalized for about 2 weeks in June 2022 with significant throat swelling/pain. She states that, at that time, a definitive diagnosis was not made. It appears that her Monospot returned positive overnight. She reports mild right upper quadrant pain as well as fever/chills. She denies any nausea, vomiting, diarrhea, or jaundice. Will consult Gastroenterology and Infectious Diseases for assistance with management of likely acute EBV hepatitis. Review of Systems 10-point ROS is otherwise unremarkable General: Fever, Chills Gastrointestinal: Abdominal Pain (RUQ) Physical Examination - Vital Signs Temperature: 98.3 F Blood Pressure: 111/72 Pulse: 77 Respirations: 21 Pulse Ox (%): 98 - Physical Exam General: Alert, In no apparent distress, Oriented x3 HEENT: Atraumatic, Mucous membr. moist/pink, Sclerae nonicteric Neck: JVD not distended Respiratory: Clear to auscultation bilaterally, Normal air movement Cardiovascular: No edema, Regular rate/rhythm, Normal S1 S2, No gallops, No rubs, No murmurs Gastrointestinal: Normal bowel sounds, Soft and benign, Non-distended, No rebound, No guarding, Tenderness (minimal, RUQ) Musculoskeletal: No clubbing Integumentary: No rashes Neurological: Normal speech, Normal affect - Studies Microbiology Data (last 24 hrs): 09/02/22 15:58 Nasopharnyx Influenza Type A Antigen Screen - Final 09/02/22 15:58 Nasopharnyx Influenza Type B Antigen Screen - Final Assessment And Plan - Plan # Viral Sepsis secondary to Acute Alistair-Ayoub Viral Hepatitis - Evaluation thus far: - Met SIRS criteria, but no bacterial source of infection identified - BCx with NGTD - Lactate - 2.0 - AST: 158 -> 135 - ALT: 170 -> 133 - ALP: 320 -> 284 - Denies ethanol, acetaminophen, drug use - HAV, HBV, HCV serologies negative - Monospot positive - EBV serologies pending - RUQ ultrasound = "Unremarkable gallbladder ultrasound." - CT abdomen/pelvis = "Mild splenomegaly" - Chest x-ray = "no acute abnormalities displayed" - Management plan: - Consulted Gastroenterology and Dr. Palma to evaluate - recommendations appreciated - Consulted Infectious Diseases and spoke with Dr. Cueto - recommendations appreciated - Avoid hepatotoxic medications - Limit Acetaminophen - Normal Saline @ 100 mL/hr - Monitor LFTs - Supportive care # Hypokalemia - Replace electrolytes as needed Nelson Woodward M.D.
[2022-09-03] MEDS ORDERED: ACETAMINOPHEN 500 MG TAB PO ONE (16:43)
[2022-09-04] MEDS: NA CHLORIDE 0.9% 1,000 ML IV SCH ×2 (04:03→14:20)
[2022-09-04] MEDS ORDERED: IBUPROFEN 200 MG TAB PO ONE (05:02)
[2022-09-04] MEDS: ENOXAPARIN 40 MG/0.4 ML SQ SCH (08:30)
[2022-09-04 09:07] VITALS: O2SAT 97
[2022-09-04 09:32] LABS: Absolute Lymphocytes (CBC) 3.6 K/uL (0.7-4.9); Hematocrit 28.8 % (36.0-45.0); Lymphocytes % 45.3 % (15.3-44.8); MCV 84.4 fL (80-100); MPV 8.9 fL (7.6-11.3); RBC Red Blood Cell Count 3.41 M/uL (3.86-4.86)
[2022-09-04 09:37] LABS: Albumin 2.6 g/dL (3.4-5.0); Bilirubin Total 0.6 mg/dL (0.2-1.0); Potassium 3.7 mEq/L (3.5-5.1); Protein, Total 6.3 g/dL (6.4-8.2)
--- NOTE | 2022-09-04 17:43 | P.PN ---
Subjective Date of Service: 09/04/22 Chief Complaint: Elevated LFTs, fever She continues to spike fevers overnight. She reports generalized malaise and fatigue. Her LFTs appear to be trending in the correct direction. Appreciate Gastroenterology and Infectious Diseases recommendations. Review of Systems 10-point ROS is otherwise unremarkable General: Fever, Chills Gastrointestinal: Abdominal Pain Physical Examination - Vital Signs Temperature: 99.1 F Blood Pressure: 123/71 Pulse: 79 Respirations: 16 Pulse Ox (%): 99 Assessment And Plan - Plan - Physical Exam General: Alert, In no apparent distress, Oriented x3 HEENT: Atraumatic, Mucous membr. moist/pink, Sclerae nonicteric Neck: JVD not distended Respiratory: Clear to auscultation bilaterally, Normal air movement Cardiovascular: No edema, Regular rate/rhythm, No murmurs Gastrointestinal: Normal bowel sounds, Soft, Non-distended, No rebound, No guarding, Tenderness (minimal, RUQ) Musculoskeletal: No clubbing Integumentary: No rashes Neurological: Normal speech, Normal affect # Viral Sepsis secondary to Acute Alistair-Ayoub Viral Hepatitis - Evaluation thus far: - Met SIRS criteria, but no bacterial source of infection identified - BCx with NGTD - Lactate - 2.0 - AST: 158 -> 135 -> 107 - ALT: 170 -> 133 -> 137 - ALP: 320 -> 284 -> 294 - Denies ethanol, acetaminophen, drug use - HAV, HBV, HCV serologies negative - Monospot positive - EBV serologies pending - RUQ ultrasound = "Unremarkable gallbladder ultrasound." - CT abdomen/pelvis = "Mild splenomegaly" - Chest x-ray = "no acute abnormalities displayed" - Management plan: - Consulted Gastroenterology and spoke with Dr. Palma - recommendations appreciated - Consulted Infectious Diseases and spoke with Dr. Cueto - recommendations appreciated - Avoid hepatotoxic medications - Limit Acetaminophen - Normal Saline @ 100 mL/hr - Monitor LFTs - Supportive care # Hypokalemia - Replace electrolytes as needed Nelson Woodward M.D.
[2022-09-04] MEDS ORDERED: HYDROCODONE/APAP 7.5/325 MG TAB PO ONE (20:03)
[2022-09-05 07:35] LABS: Albumin 2.6 g/dL (3.4-5.0); Bilirubin Total 0.6 mg/dL (0.2-1.0); Potassium 3.5 mEq/L (3.5-5.1); Protein, Total 6.8 g/dL (6.4-8.2)
[2022-09-05] MEDS: ENOXAPARIN 40 MG/0.4 ML SQ SCH (08:37)
[2022-09-05] MEDS ORDERED: IBUPROFEN 600 MG TAB PO ONE (09:43)
[2022-09-05] MEDS ORDERED: HYDROCORTISONE SUC 100 MG INJ IV SCH (10:00)
[2022-09-05] MEDS: NA CHLORIDE 0.9% 1,000 ML IV SCH ×3 (10:49→23:13)
--- NOTE | 2022-09-05 12:27 | P.CNS ---
Date of Consult: 09/05/22 Reason for Consult: EBV Chief Complaint: Elevated LFTs, fever History of Present Illness: Patient is a 32 yo female with no significant medical history who presented to the ED with complaints of fever, muscle aches and dark urine. Patient has been experiencing fevers 101-105 F at home since the of this month. She reports having visited a freestanding clinic in [place] for fever, malaise and dark urine where she was found to have low potassium, given potassium replacement and instructed to stay hydrated and rest. ED labs revealed elevated LFTs. CT abdomen showing splenomegaly. Patient was admitted for further workup and management. Monospot test positive. Allergies No Known Allergies Allergy (Unverified 09/03/22 01:58) Home medications list reviewed: Yes Home Medications: Ondansetron [Zofran] 4 mg PO Q6H PRN #20 tab 09/05/22 predniSONE [Deltasone] 20 mg PO DAILY #5 tab 09/05/22 - Past Medical/Surgical History -: None -: -: D&C -: Tonsillectomy Psychosocial/ Personal History: Patient is employed at the school, lives at home with her - Social History Alcohol use: No CD- Drugs: No Caffeine use: Yes Place of Residence: Home Review of Systems 10-point ROS is otherwise unremarkable General: Fever, Weakness, Malaise ENT: Unremarkable Respiratory: Unremarkable Cardiovascular: Unremarkable Gastrointestinal: Nausea Physical Examination Temp Pulse Resp BP Pulse Ox 100.3 F 107 H 16 129/72 97 09/05/22 10:35 09/05/22 08:00 09/05/22 08:00 09/05/22 08:00 09/05/22 08:00 General: Alert, Oriented x3, Mild distress HEENT: Atraumatic, Normocephalic Neck: Supple, JVD not distended Respiratory: Clear to auscultation bilaterally, Normal air movement Cardiovascular: No edema, Normal pulses Gastrointestinal: Normal bowel sounds, Soft and benign, Non-distended Musculoskeletal: No clubbing, No swelling Integumentary: No rashes, No breakdown Neurological: Normal gait, Normal speech, Normal tone, Normal affect Laboratory Data - Reviewed Microbiology Data - Reviewed Imagings Data: - reviewed Conclusions/Impression: Problem List - Alistair Ayoub Virus - EBV Hepatitis EBV Acute EBV Hepatitis - Monospot positive. EBV serologies pending - GI consulted - ALT/AST slightly improving, remain elevated - Mild Splenomegaly on CT abdomen - Febrile, temp 101.9 - No leukocytosis Recommendations - Continue supportive care and hydration - Monitor WBC and fever trends, LFTs - Avoid hepatotoxic medications Patient advised to rest and maintain hydration and adequate nutrition as tolerated. Would benefit from Immunology consult as outpatient. ID will follow up and monitor patient closely. Case discussed with Larry Floyd
--- NOTE | 2022-09-05 12:44 | EKG ---
Test Date: 2022-09-02 Test Time: 14:57:59 Process Steward: JAMES MEASUREMENT RESULTS: Intervals: Rate: 112 [place]: 146 QRSD: 86 QT: 320 QTc: 436 [place]: P: 53 NJ: 146 QRS: 22 T: 62 INTERPRETIVE STATEMENTS: Sinus tachycardia with premature ventricular complexes or fusion complexes Otherwise normal ECG No previous ECG available for comparison Electronically Signed On 09-05-22 12:37:46 CDT by Alejandro Calzada
[2022-09-05] MEDS: METHYLPREDNISOLONE 125 MG INJ IV SCH ×2 (17:32→23:13)
[2022-09-06 01:51] VITALS: BMI 26.5
[2022-09-06 04:39] VITALS: BP 128/67; TEMP 97.1
[2022-09-06] MEDS: METHYLPREDNISOLONE 125 MG INJ IV SCH ×2 (06:26→11:40)
[2022-09-06 07:12] LABS: Absolute Lymphocytes (CBC) 2.5 K/uL (0.7-4.9); Lymphocytes % 31.4 % (15.3-44.8); MCV 84.5 fL (80-100)
[2022-09-06 07:23] LABS: Protime INR 1.15
[2022-09-06 07:29] LABS: Albumin 2.8 g/dL (3.4-5.0); Bilirubin Total 0.4 mg/dL (0.2-1.0); Magnesium 2.3 mg/dL (1.6-2.4); Phosphorus 3.4 mg/dL (2.5-4.9); Protein, Total 7.5 g/dL (6.4-8.2)
[2022-09-06] MEDS: ENOXAPARIN 40 MG/0.4 ML SQ SCH (08:19)
[2022-09-06] MEDS: NA CHLORIDE 0.9% 1,000 ML IV SCH (08:19)
--- NOTE | 2022-09-06 09:24 | P.PN ---
Subjective Date of Service: 09/05/22 Chief Complaint: Elevated LFTs, fever Subjective: New changes (Increased fever and RUQ/right flank pain. ID consult done and advised for possible immunology evaluation as outpatient due to recurrent infections over past ~ 6 months.) Review of Systems 10-point ROS is otherwise unremarkable General: Fever Gastrointestinal: Abdominal Pain Physical Examination - Vital Signs Temperature: 97.1 F Blood Pressure: 128/67 Pulse: 58 Respirations: 17 Pulse Ox (%): 96 - Physical Exam General: Alert, Cooperative, Mild distress HEENT: Atraumatic, Normocephalic, PERRLA, EOMI Neck: Supple Respiratory: Normal air movement Cardiovascular: Normal pulses Gastrointestinal: Soft and benign, No tenderness, No rebound, No guarding Neurological: Normal speech, Normal strength at 5/5 x4 extr Assessment And Plan - Current Problems (Diagnosis) (1) Viral hepatitis Current Visit: Yes Status: Acute (2) Alistair Ayoub infection Current Visit: Yes Status: Acute (3) RUQ abdominal pain Current Visit: Yes Status: Acute (4) Fever Current Visit: Yes Status: Acute (5) Malaise Current Visit: Yes Status: Acute - Plan REC:1) continue IVFs and supportive care 2) appreciate ID consult (possilbe immunology evaluation as outpatient due to recurrent infections over past 6 months) 3) await more EBV labs and HIV
--- NOTE | 2022-09-06 09:27 | P.PN ---
Subjective Date of Service: 09/06/22 Chief Complaint: Elevated LFTs, fever Subjective: Improving (Feels much better today. No fever nor RUQ/right flank pain today. Tolerating po diet. HIV negative.) Review of Systems Unremarkable Physical Examination - Vital Signs Temperature: 97.1 F Blood Pressure: 128/67 Pulse: 58 Respirations: 17 Pulse Ox (%): 96 - Physical Exam General: Alert, In no apparent distress, Oriented x3, Cooperative HEENT: Atraumatic, Normocephalic, PERRLA, EOMI Neck: Supple Cardiovascular: Normal pulses Gastrointestinal: Soft and benign, No tenderness, No rebound, No guarding Neurological: Normal speech, Normal strength at 5/5 x4 extr Assessment And Plan - Current Problems (Diagnosis) (1) Viral hepatitis Current Visit: Yes Status: Acute (2) Alistair Ayoub infection Current Visit: Yes Status: Acute (3) RUQ abdominal pain Current Visit: Yes Status: Acute (4) Fever Current Visit: Yes Status: Acute (5) Malaise Current Visit: Yes Status: Acute - Plan REC:1) continue IVFs and supportive care 2) monitor labs 3) await more EBV labs
--- NOTE | 2022-09-06 11:09 | P.PN ---
Date of Service: 09/06/22 Chief Complaint: Elevated LFTs, fever Subjective: Patient reports she is feeling much better today, A&Ox3, breathing comfortably on room air. Denies any nausea, vomiting, diarrhea or abdominal pain. No sore throat, no myalgia or chills. No fever. Physical Examination Temp Pulse Resp BP Pulse Ox 97.1 F 58 17 128/67 96 09/06/22 09:27 09/06/22 09:27 09/06/22 09:27 09/06/22 09:27 09/06/22 09:27 General: Alert, Oriented x3, HEENT: Atraumatic, Normocephalic Neck: Supple, JVD not distended Respiratory: Clear to auscultation bilaterally, Normal air movement Cardiovascular: No edema, Normal pulses Gastrointestinal: Normal bowel sounds, Soft and benign, Non-distended Musculoskeletal: No clubbing, No swelling Integumentary: No rashes, No breakdown Neurological: Normal gait, Normal speech, Normal tone, Normal affect Laboratory Data - Reviewed Microbiology Data - Reviewed Imagings Data: - reviewed Conclusions/Impression: Problem List - Alistair Ayoub Virus - EBV Hepatitis EBV Acute EBV Hepatitis - Monospot positive. EBV serologies pending - GI on case - ALT/AST slightly improving, remain elevated - Mild Splenomegaly on CT abdomen - Afebrile; No leukocytosis - On Solu-Medrol started 09/05 Recommendations - Continue supportive care and hydration. Tolerating PO diet. - Monitor WBC and fever trends, LFTs - Avoid hepatotoxic medications Patient advised to rest and maintain hydration and adequate nutrition as tolerated. ID will follow up and monitor patient closely. Case discussed with Larry Floyd
== END 2022-09-06 14:29 | disposition home or self-care (01) | DRG 872 ==
LOC: ER 14:20 → ERHOLD 23:03 → 4TH 09-03 17:41
PROVIDERS: ADMIT Internal Medicine; ATTEND Hospitalist
DX: A41.89 Other specified sepsis (principal); B17.9 Acute viral hepatitis, unspecified; B27.09 Gammaherpesviral mononucleosis with other complications; E87.6 Hypokalemia; R16.1 Splenomegaly, not elsewhere classified; Z79.899 Other long term (current) drug therapy
CPT/HCPCS: 36415; 71045; 74176; 76705; 80053; 80061; 80074; 81001; 81025; 82947; 83605; 83735; 84100; 84132; 84439; 84443; 85025; 85610; 85730; 86308; 86664; 86665; 87040; 87389; 87804; 93005; 96374; 99285; J1650; J1720; J2405; J2930; J7030; U0003